=== PATIENT | female | born 1955 | race Caucasian/White ===

== ENCOUNTER 2024-08-07 11:14 | Emergency (ER) | payer MEDICARE, BC, SELFPAY ==
[2024-08-07] VITALS (10 sets, daily range): BP systolic 125–160; BP diastolic 64–132; PULSE 65–74; BMI 34.9
[2024-08-07 12:49] LABS: % Basophils 0.6 % (0-2); % Eosinophils 1.7 % (0-6); % Immature Granulocytes 0.2 % (0-0.5); % Lymphocytes 36.9 % (20.5-51.1); % Monocytes 5.4 % (1.7-9.3); % Neutrophils 55.2 % (42.2-75.2); Absolute Eosinophils 0.1 10^3/uL (0-0.7); Absolute Lymphocytes 1.7 10^3/uL (1.2-3.4); Absolute Monocytes 0.3 10^3/uL (0.1-0.6); Absolute Neutrophils 2.6 10^3/uL (1.4-6.5); Hematocrit 36.2 % (37.0-47.0); Hemoglobin 11.8 g/dL (12.0-16.0); Mean Corp Hgb Conc. 32.6 g/dL (33.0-37.0); Mean Corpuscular Hgb 27.8 pg (27.0-31.0); Mean Corpuscular Volume 85.2 fL (81.0-99.0); Mean Platelet Volume 10.8 fL (7.4-10.4); Nucleated Red Blood Cells % 0 %; Platelet Count 222 10^3/uL (130-400); Red Blood Cell Count 4.25 10^6/uL (4.20-5.40); Red Cell Dist. Width 16.1 % (11.5-14.5); White Blood Cell Count 4.6 10^3/uL (4.8-10.8)
--- NOTE | 2024-08-07 12:50 | ED.GENMED ---
History of Present Illness
General
Chief Complaint: Breathing Problem
Source: patient
Exam Limitations: none
Time Seen by Provider: 08/07/24 11:37
Nursing documentation reviewed up to this point in time: agreed with
History of Present Illness
History of Present Illness:
69 y/o F
with h/o parkinsons
low pulse ox at night, wears o2 3 L
PAF on xarelto; on metoprolol since march 2024 and has had her dose split to BID in may due to feeling orthostatic
she is here for 3 days of uris xs, waking up feeling congested, cough as well as an increase in her dizziness/lightheadedness erlinda with standing from ehr baseline
she also feels some palpitations which she thnks is PVCs but watned to be srue she wasn't back in [employer]
she is compliant with xarelto
she felt pretty sob this mornnign when she woke and coughed a bit and couldn't catch her breath
she has not had new fever, chills, diarrhea, vomiting, weakness, pleuritic pain
Past History
Past History
ED Past Medical History: Arrthythmia (PAF), Asthma, HTN, Hypercholesterolemia and Other (parkinsons)
Review of Systems
Review of Systems
Allergies reviewed?: Yes
All Other Systems: Not applicable
Phy Exam
Physical Exam
Physical Exam:
GENERAL: Alert , in no apparent distress, mild anxiety
EYE: pupils equal and reactive
NECK: Supple
ENT: o/p clr, mmm.
CARDIAC: Regular rate and rhythm .
LUNGS: occ cough; no tchypnea Clear breath sounds bilaterally, no acute respiratory distress, no wheezes/rales/rhonchi
ABDOMEN: Soft, without focal tenderness, no r/g, no cvat, normal bowel sounds
NEUROLOGICAL: Alert and oriented, no focal neuro deficits, subtle tremor
SKIN: Warm and dry, skin intact.
MUSCULOSKELETAL: No edema, well perfused. neg juvencio's sign
PSYCH: Normal and appropriate interaction.
Course
Orders/Labs/Results
Orders:
Orders
08/07/24 11:16
EKG [Electrocardiogram (*1)] Urgent
Reason for Study: Shortness of Breath
EKG- Treatment ONCE
08/07/24 12:15
Cardiac Monitoring- Treatment ONCE
08/07/24 12:17
Orthostatic VS- Treatment ONCE
CR Chest - 2 Views Urgent
Comment:
Reason For Exam: cough
08/07/24 12:35
COVID-19 Antigen Urgent
Source: Nasal Swab
Complete Blood Count/With Diff Urgent
D-Dimer Urgent
NT-proBNP Urgent
Troponin I Urgent
Influenza A+B Rapid Molecular Urgent
EZEQUIEL Source: Nasal Swab
Specimen Description:
08/07/24 13:00
Comprehensive Metabolic Panel Urgent
08/07/24 14:01
Electrocardiogram (*1) Urgent
Reason for Study: Shortness of Breath
EKG- Treatment ONCE
08/07/24 14:48
Troponin I Urgent
Abnormal Lab Results
08/07/24 08/07/24
12:35 13:00
WBC 4.6 L 10^3/uL
(4.8-10.8)
Hgb 11.8 L g/dL
(12.0-16.0)
Hct 36.2 L %
(37.0-47.0)
MCHC 32.6 L g/dL
(33.0-37.0)
RDW 16.1 H %
(11.5-14.5)
MPV 10.8 H fL
(7.4-10.4)
Glucose 107 H mg/dl
(70-99)
Total Bilirubin 1.7 H mg/dl
(0.2-1.3)
08/07/24 12:35
08/07/24 13:00
Vital Signs
Initial and Last Documented VS:
Initial Vital Signs
Temp Pulse Resp BP Pulse Ox
36.8 C 76 16 135/79 100
08/07/24 11:16 08/07/24 11:16 08/07/24 11:16 08/07/24 11:16 08/07/24 11:16
Last Documented Vital Signs
Temp Pulse Resp BP Pulse Ox
36.8 C 64 16 128/64 100
08/07/24 11:16 08/07/24 15:30 08/07/24 15:30 08/07/24 15:00 08/07/24 11:56
ED Attending Note
-
Portions of this chart may have been created with voice recognition software.� Occasional wrong word or��sound alike� substitutions may have occurred due to the inherent limitations of voice recognition software.
Discharge Plan
Departure
Patient Disposition: Home (Routine Discharge)
Date of Disposition: 08/07/24
Time of Disposition: 15:28
Patient with high blood pressure during this ER visit?: No
Condition: Fair
Covid-19: Not Applicable
Discharge Problem:
Acute upper respiratory infection
Instructions: Upper respiratory infection in adults - Discharge instructions
Prescriptions:
New
azithromycin [Zithromax Z-Miguel] 250 mg tablet
See Rx Instructions .ROUTE .COMPLEX Qty: 6 0RF
Rx Instructions:
TAKE 2 TAB PO DAY 1 THEN 1 TAB PO DAILY
No Action
levothyroxine [Synthroid] 137 mcg Tablet
137 mcg PO MOTUWETHFRSA
ondansetron HCl [Zofran] 4 mg Tablet
4 mg PO PRN PRN (Reason: nausea )
famotidine [Pepcid] 40 mg Tablet
40 mg PO .0
carbidopa-levodopa 50-200 mg Tablet Extended Release
1 tab PO .2200
diazepam 2 mg Tablet
1 mg PO .2200 PRN (Reason: sleep)
esomeprazole magnesium [Nexium] 40 mg Capsule,Delayed Release(Dr/Ec)
40 mg PO .0800 AND PRE DINNER
Patient Comments:
30 min before dinner
carbidopa-levodopa [Sinemet] 25-100 mg Tablet
1.5 tab PO .0800, 1200, 1999
carbidopa-levodopa [Sinemet] 25-100 mg Tablet
2 tab PO .1600
losartan 100 mg Tablet
100 mg PO .1999
dicyclomine 10 mg Capsule
10 mg PO PRN PRN (Reason: ibs)
metoprolol tartrate 25 mg Tablet
12.5 mg PO BID
budesonide-formoterol [Symbicort] 160-4.5 mcg/actuation Hfa Aerosol Inhaler
2 puff INHALATION BID
Xarelto 20 mg Tablet
20 mg PO QPM
Botox
0 unit SC [id number]
azelastine
2 spray intranasal BID
Referrals:
Sadaf Becerra MD [Family Provider] - Follow up in 5-7 days
Activity Restrictions/Additional Instructions:
YOU PROBABLY HAVE A VIRUS CAUSING THIS COUGH
YOUR WORK UP TODAY IS REASSURING
PLEASE TRY SOME OVER THE COUNTER REMEDIES FOR YOUR COUGH IF YOU CAN TOLERATE
IF YOU STILL HAVE A COUGH IN A FEW DAYS YOU CAN START THE ZITHROMAX ANTIBIOTIC FOR BORNCHITIS
RETURN FOR: SEVERE SHORTNESS OF BREATH, WORSE CHEST PAIN, VOMITING, FEVER, WEAKNESS ETC
Interventions
Interventions:
*Risk Screen - Suicide Last Done: 08/07/24 11:16
*General Assessment Last Done: 08/07/24 15:47
*Neglect/Abuse Screening Last Done: 08/07/24 11:16
ED- Fall Risk Assessment Last Done: 08/07/24 11:56
*ED COVID-19 Vaccine History Last Done: 08/07/24 11:56
*Nursing Disposition Last Done: 08/07/24 15:47
ED- Cardiac Assessment Last Done: 08/07/24 11:55
ED- Pulmonary Assessment Last Done: 08/07/24 11:56
Discharge Date and Time
Discharge Date/Time: 08/07/24 15:48
Print Language: PORTUGUESE
[2024-08-07 13:01] LABS: COVID-19 Antigen Negative (Negative)
[2024-08-07 13:11] LABS: NT-proBNP 270 pg/ml; Troponin I < 0.012 ng/ml
[2024-08-07 13:14] LABS: D-Dimer < 0.27 ug/mlFEU (0.00-0.50)
[2024-08-07 13:18] LABS: ALT (SGPT) < 10 U/L (0-35); AST (SGOT) 15 U/L (14-36); Albumin 4.2 g/dl (3.5-5.0); Alkaline Phosphatase 45 U/L (38-126); Blood Urea Nitrogen 13 mg/dl (7-17); Calcium 9.5 mg/dl (8.4-10.2); Carbon Dioxide 22 mmol/L (22-30); Chloride 106 mmol/L (98-107); Estimated Creatinine Clearance 81 ml/min; Glucose 107 mg/dl (70-99); Potassium 4.4 mmol/L (3.5-5.1); Sodium 139 mmol/L (135-145); Total Bilirubin 1.7 mg/dl (0.2-1.3); Total Protein 6.5 g/dl (6.3-8.2); eGFR > 60.00
[2024-08-07 15:24] LABS: Troponin I < 0.012 ng/ml
== END 2024-08-07 15:48 | disposition home or self-care (01) ==
LOC: EMR 11:14
PROVIDERS: Physician Assistant; EMERGENCY PHYSICIAN Emergency Medicine; FAMILY PHYSICIAN Family Medicine
DX: J06.9 Acute upper respiratory infection, unspecified (principal); G20.A1 Parkinson's disease without dyskinesia, without mention of fluctuations
CPT/HCPCS: 99285; 71046; 80053; 83880; 84484; 85025; 85379; 87502; 87811; 93005

== ENCOUNTER 2024-08-19 18:06 | Emergency (ER) | payer MEDICARE, BC, SELFPAY ==
[2024-08-19 18:09] VITALS: BP 150/78
[2024-08-19 21:13] VITALS: BP 151/89; BMI 35.1
--- NOTE | 2024-08-19 21:41 | ED.GENMED ---
History of Present Illness
General
Chief Complaint: Heart Rate Problem
Source: patient and spouse (Spouse also contributes to patient's recent history, being seen last week for shortness of breath)
Exam Limitations: none
Time Seen by Provider: 08/19/24 21:30
Nursing documentation reviewed up to this point in time: agreed with
History of Present Illness
History of Present Illness:
69-year-old female presents emergency department due to palpitations, cold symptoms for the past week. 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
Past History
Past History
ED Past Medical History: Arrthythmia (PAF), Asthma, HTN, Hypercholesterolemia and Other (parkinsons)
Social History
Tobacco: Non-smoker
Alcohol: None
Drug: None
Review of Systems
Review of Systems
Allergies reviewed?: Yes
All Other Systems: Not applicable
Constitutional: Reports no symptoms
EENT: Reports runny nose
Respiratory: Reports cough
Cardiac: Reports palpitations
ABD/GI: Reports no symptoms
: Reports no symptoms
Musculoskeletal: Reports no symptoms
Skin: Reports no symptoms
Neurological: Reports no symptoms
Endocrine: Reports no symptoms
Hematologic/Lymphatic: Reports no symptoms
Psychiatric: Reports no symptoms
Phy Exam
Physical Exam
Physical Exam:
Physical Exam
General: no apparent distress, not acutely ill
Neck: supple. no meningeal signs. normal posterior pharynx
Heart: s1/s2 regular rate and rhythm, no murmur. equal radial
pulses.
HEENT: Pupils equal round reactive to light, EOMI
Lungs: no acute respiratory distress. clear bilaterally, cough
Abdomen: normal bowel sounds. not tender. no CVAT
Neuro: alert and oriented. no focal neurological deficits cranial nerves II through XII intact
Skin: no rash
Psychiatric: well kept. interactive and cooperative
Extremities: no edema. no calf tenderness. negative homans. good distal pulses
Course
Orders/Labs/Results
Orders:
Orders
08/19/24 18:07
EKG [Electrocardiogram (*1)] Urgent
Reason for Study: Tachycardia
08/19/24 18:08
EKG- Treatment ONCE
08/19/24 21:52
CR Chest - 2 Views Urgent
Comment:
Reason For Exam: cough
Vital Signs
Initial and Last Documented VS:
Initial Vital Signs
Temp Pulse Resp BP Pulse Ox
98.1 F 87 18 150/78 98
08/19/24 18:09 08/19/24 18:09 08/19/24 18:09 08/19/24 18:09 08/19/24 18:09
Last Documented Vital Signs
Temp Pulse Resp BP Pulse Ox
98.1 F 87 18 151/89 99
08/19/24 18:09 08/19/24 18:09 08/19/24 18:09 08/19/24 21:13 08/19/24 21:15
MDM/Problems Addressed
Differential Diagnosis Includes:
Pneumonia, rapid atrial fibrillation
MDM/Problems Addressed:
69-year-old female with palpitations. No signs of dysrhythmia. No signs of pneumonia. Patient stable for discharge.
Chronic conditions affecting care: Arrhythmia, Asthma and Neurological disorder (Parkinson's)
Acute Exacerbation and/or Progression of Chronic Illness: Asthma
*Radiology
Radiology exam reviewed: radiology read reviewed (Chest x-ray no acute findings)
*Pulse Oximetry
Patient hypoxic: no
*EKG
Interpreted by ED Provider?: Yes
EKG Intrepretation Date: 08/19/24
EKG Intrepretation Time: 06:14
Interpretation: normal
Comparison EKG: no comparison EKG present
Heart Rate: 82
Rate: normal
Rhythm: sinus
[place]: normal axis
Interval: normal interval
QRS Pattern: normal QRS
Ischemia: no ischemia
*Clutch Inspector Interpretation
Rate: normal
Interpretation: normal
Heart Rate: 84
Rhythm: sinus
*Critical Care Note
Total Time (30-74mins, 75-104mins- exclusive of procedures): Not Applicable
Data Reviewed
Review of Other/Old Records Reveals: Labs (Recent lab work shows normal electrolytes, 08/07/2024)
Source: records
Further Testing Considered But Not Given:
Lab work not indicated
Patient Management
Social determinants of health affecting care: Living situation and Strong social support
Escalation/DeEscalation of care consider admission/obs:
Admission considered, but not indicated
ED Attending Note
-
Portions of this chart may have been created with voice recognition software.� Occasional wrong word or��sound alike� substitutions may have occurred due to the inherent limitations of voice recognition software.
Discharge Plan
Departure
Patient Disposition: Home (Routine Discharge)
Date of Disposition: 08/19/24
Time of Disposition: 23:24
Patient with high blood pressure during this ER visit?: Yes
Condition: Good
Discharge Problem:
Palpitations
Instructions: Palpitations (DC), BLOOD PRESSURE
Prescriptions:
No Action
levothyroxine [Synthroid] 137 mcg Tablet
137 mcg PO MOTUWETHFRSA
ondansetron HCl [Zofran] 4 mg Tablet
4 mg PO PRN PRN (Reason: nausea )
famotidine [Pepcid] 40 mg Tablet
40 mg PO .0
carbidopa-levodopa 50-200 mg Tablet Extended Release
1 tab PO .2199
diazepam 2 mg Tablet
1 mg PO .2200 PRN (Reason: sleep)
esomeprazole magnesium [Nexium] 40 mg Capsule,Delayed Release(Dr/Ec)
40 mg PO .0800 AND PRE DINNER
Patient Comments:
30 min before dinner
carbidopa-levodopa [Sinemet] 25-100 mg Tablet
1.5 tab PO .0800, 1200, 2000
carbidopa-levodopa [Sinemet] 25-100 mg Tablet
2 tab PO .1600
losartan 100 mg Tablet
100 mg PO .2000
dicyclomine 10 mg Capsule
10 mg PO PRN PRN (Reason: ibs)
metoprolol tartrate 25 mg Tablet
12.5 mg PO BID
budesonide-formoterol [Symbicort] 160-4.5 mcg/actuation Hfa Aerosol Inhaler
2 puff INHALATION BID
Xarelto 20 mg Tablet
20 mg PO QPM
Botox
0 unit SC [id number]
azelastine
2 spray intranasal BID
azithromycin [Zithromax Z-Miguel] 250 mg tablet
See Rx Instructions .ROUTE .COMPLEX Qty: 6 0RF
Rx Instructions:
TAKE 2 TAB PO DAY 1 THEN 1 TAB PO DAILY
Referrals:
Sadaf Becerra MD [Family Provider] - Call in 1-3 days for appt
Interventions
Interventions:
*Risk Screen - Suicide Last Done: 08/19/24 18:09
*General Assessment Last Done: 08/19/24 18:09
*Neglect/Abuse Screening Last Done: 08/19/24 21:14
ED- Fall Risk Assessment Last Done: 08/19/24 18:09
*ED COVID-19 Vaccine History Last Done: 08/19/24 18:09
ED- Cardiac Assessment Last Done: 08/19/24 21:14
ED- Pulmonary Assessment Last Done: 08/19/24 21:14
Discharge Date and Time
Print Language: MOHAWK
[2024-08-19 22:00] VITALS: BP 139/77
[2024-08-19 23:00] VITALS: BP 145/83
== END 2024-08-19 23:36 | disposition home or self-care (01) ==
LOC: EMR 18:06
PROVIDERS: EMERGENCY PHYSICIAN Emergency Medicine; FAMILY PHYSICIAN Family Medicine
DX: R00.2 Palpitations (principal); J45.909 Unspecified asthma, uncomplicated; I10 Essential (primary) hypertension; E78.00 Pure hypercholesterolemia, unspecified; I48.0 Paroxysmal atrial fibrillation; G20.A1 Parkinson's disease without dyskinesia, without mention of fluctuations
CPT/HCPCS: 99284; 71046; 93005

== ENCOUNTER → 2024-09-29 09:49 | Outpatient (REF) | payer MEDICARE, BC, SELFPAY | LOC: WDC 09:49 | PROVIDERS: ATTENDING PHYSICIAN Family Medicine | DX: R92.8 Other abnormal and inconclusive findings on diagnostic imaging of breast (principal); N63.32 Unspecified lump in axillary tail of the left breast | CPT/HCPCS: 76642; 77062; 77066 ==

== ENCOUNTER 2024-12-18 10:52 | Emergency (ER) | payer MEDICARE, BC, SELFPAY ==
[2024-12-18 10:59] VITALS: BP 149/89
--- NOTE | 2024-12-18 11:42 | ED.GENMED ---
History of Present Illness
General
Chief Complaint: Dizziness
Time Seen by Provider: 12/18/24 11:12
History of Present Illness
History of Present Illness:
Patient is a 69-year-old woman with history of A-fib, hypertension, Parkinson's, migraines presenting to the emergency department with dizziness. Patient states she has been being treated for sinusitis. She is currently on her second round of
antibiotics and is finishing up in a few days. She states that yesterday she had her migraine which was usual for her. She did have an episode of vertigo when she looks on the left. It resolved. She went to sleep did not have any recurrent
symptoms. Woke up this morning with 3 more episodes of vertigo. They were all positional and lasted for a few moments and then resolved. No nausea no vomiting. She does note that she has bilateral ear fullness. No hearing loss. When she went
to the ENT doctor for the recurrent sinusitis they did advise her that her allergies were flaring up and told her to start taking a nasal spray. However patient has not been taking anything for her allergies. No numbness tingling. No weakness.
No difficulty with ambulation.
Past History
Past History
ED Past Medical History: Arrthythmia (PAF), Asthma, HTN, Hypercholesterolemia and Other (parkinsons)
Social History
Tobacco: Non-smoker
Alcohol: None
Drug: None
Phy Exam
Physical Exam
Physical Exam:
GENERAL: in no acute distress
HEENT: normocephalic, extraocular movements intact, moist oral mucosa, bilateral middle ear effusions, boggy nasal turbinates bilaterally
NECK: normal inspection
RESPIRATORY: no respiratory distress, clear to auscultation bilaterally
CARDIOVASCULAR: regular rate and rhythm
ABDOMEN/: soft, non-distended, non-tender to palpation, no rebound or guarding
EXTREMITIES: non-tender, no edema/swelling
NEUROLOGIC: alert and oriented x 3, cranial nerves II-XII intact, right upper extremity strength 5/5, left upper extremity strength 5/5, right lower extremity strength 5/5, left lower extremity strength 5/5, normal sensation to light touch, normal
[id number] and [id number], gait not tested formally, reproducible vertigo when patient looks to the left
SKIN: warm
Sepsis
Sepsis Screening
Sepsis Assessment: Sepsis Ruled Out
Sepsis Screen
Sepsis Screen: Sepsis Ruled Out
Date: 12/18/24
Time: 14:27
Course
Orders/Labs/Results
Orders:
Orders
12/18/24 10:57
Electrocardiogram (*1) Urgent
Reason for Study: Vertigo / Dizzy
EKG- Treatment ONCE
12/18/24 11:41
Pt Eval And Treat Urgent
Treatment: vestibular
Activity Level: Ambulate
12/18/24 11:42
CT Head W/o Iv Contrast Urgent
Comment:
Reason For Exam: dizziness
Vital Signs
Initial and Last Documented VS:
Initial Vital Signs
Temp Pulse Resp BP Pulse Ox
98.5 F 80 18 149/89 99
12/18/24 10:59 12/18/24 10:59 12/18/24 10:59 12/18/24 10:59 12/18/24 10:59
Last Documented Vital Signs
Temp Pulse Resp BP Pulse Ox
98.5 F 67 15 152/86 99
12/18/24 10:59 12/18/24 14:21 12/18/24 14:21 12/18/24 14:21 12/18/24 14:21
MDM/Problems Addressed
Differential Diagnosis Includes:
Patient is a 69-year-old woman presenting to the emergency department with dizziness. Vitals unremarkable and exam does show reproducible vertigo with looking to the left. Likely peripheral cause of vertigo such as BPPV or vestibular neuritis
given the patient has an ongoing sinus infection. Could also be secondary to allergies given the turbinates and the ear congestion and ear fullness patient advised to start using the nasal spray as well as oral antihistamine.. History and exam not
consistent with central vertigo such as posterior stroke. Considered deeper abscess such as intracranial abscess though unlikely as patient is afebrile and is overall well-appearing with no neurodeficits. After shared decision making we will
obtain CT scan of the head. Will have physical therapy evaluate for vestibular therapy. EKG per my interpretation normal sinus rhythm.
*Critical Care Note
Total Time (30-74mins, 75-104mins- exclusive of procedures): Not Applicable
Update Note
Update Note:
CT scan per my interpretation with no obvious abnormality. Patient states that she has been here she has had no further episodes. Physical therapy evaluated patient. Will discharge with Antivert as needed. Patient advised to start using oral
histamine and allergy spray in addition to continuing her antibiotics. Strict return precautions given. Will discharge at this time.
ED Attending Note
-
Portions of this chart may have been created with voice recognition software.� Occasional wrong word or��sound alike� substitutions may have occurred due to the inherent limitations of voice recognition software.
Discharge Plan
Departure
Patient Disposition: Home (Routine Discharge)
Date of Disposition: 12/18/24
Time of Disposition: 14:23
Patient with high blood pressure during this ER visit?: Yes
Discharge Problem:
Vertigo
Instructions: Vertigo (a Type of Dizziness) (DC)
Prescriptions:
New
meclizine 12.5 mg tablet
12.5 mg PO TID PRN (Reason: dizziness) Qty: 30 0RF
No Action
levothyroxine [Synthroid] 137 mcg Tablet
137 mcg PO MOTUWETHFRSA
ondansetron HCl [Zofran] 4 mg Tablet
4 mg PO PRN PRN (Reason: nausea )
famotidine [Pepcid] 40 mg Tablet
40 mg PO .2199
carbidopa-levodopa 50-200 mg Tablet Extended Release
1 tab PO .2199
diazepam 2 mg Tablet
1 mg PO .2200 PRN (Reason: sleep)
esomeprazole magnesium [Nexium] 40 mg Capsule,Delayed Release(Dr/Ec)
40 mg PO .0800 AND PRE DINNER
Patient Comments:
30 min before dinner
carbidopa-levodopa [Sinemet] 25-100 mg Tablet
1.5 tab PO .0800, 1200, 2000
carbidopa-levodopa [Sinemet] 25-100 mg Tablet
2 tab PO .1600
losartan 100 mg Tablet
100 mg PO .2000
dicyclomine 10 mg Capsule
10 mg PO PRN PRN (Reason: ibs)
metoprolol tartrate 25 mg Tablet
12.5 mg PO BID
budesonide-formoterol [Symbicort] 160-4.5 mcg/actuation Hfa Aerosol Inhaler
2 puff INHALATION BID
Xarelto 20 mg Tablet
20 mg PO QPM
Botox
0 unit SC [id number]
azelastine
2 spray intranasal BID
azithromycin [Zithromax Z-Miguel] 250 mg tablet
See Rx Instructions .ROUTE .COMPLEX Qty: 6 0RF
Rx Instructions:
TAKE 2 TAB PO DAY 1 THEN 1 TAB PO DAILY
Referrals:
Kaitlin Block MD [Family Provider] -
Activity Restrictions/Additional Instructions:
You were seen in the Emergency Department today for dizziness. While you were here we performed a CT scan, which was reassuring. Please start using your oral antihistamine as well as a nasal spray to help with some of your symptoms. Please
continue your antibiotics. I did prescribe you meclizine which you can use when you are having an acute attack
We would like for you to follow up with your primary care physician for further evaluation. If you experience fever, worsening of your symptoms, or develop any other new or concerning symptoms, please return to the Emergency Department immediately.
Please see the attached sheet for additional information.
Interventions
Interventions:
*Risk Screen - Suicide Last Done: 12/18/24 10:59
*General Assessment Last Done: 12/18/24 10:59
*Neglect/Abuse Screening Last Done: 12/18/24 10:59
ED- Neurological Assessment Last Done: 12/18/24 11:42
ED- Cardiac Assessment Last Done: 12/18/24 11:42
ED Swallowing Screen Last Done: 12/18/24 11:42
Discharge Date and Time
Print Language: CHINESE
[2024-12-18 14:21] VITALS: BP 152/86
[2024-12-18 15:40] VITALS: BP 134/87
== END 2024-12-18 14:37 | disposition home or self-care (01) ==
LOC: EMR 10:52
PROVIDERS: EMERGENCY PHYSICIAN Student in an Organized Health Care Education/Training Program; FAMILY PHYSICIAN Internal Medicine
DX: R42 Dizziness and giddiness (principal); I48.0 Paroxysmal atrial fibrillation; E78.00 Pure hypercholesterolemia, unspecified; I10 Essential (primary) hypertension; J45.909 Unspecified asthma, uncomplicated; G20.A1 Parkinson's disease without dyskinesia, without mention of fluctuations
CPT/HCPCS: 99284; 70450; 93005

== ENCOUNTER 2025-02-06 13:05 | Emergency (ER) | payer MEDICARE, BC, SELFPAY ==
[2025-02-06 13:09] VITALS: BP 133/72
[2025-02-06 13:53] LABS: % Basophils 0.7 % (0-2); % Eosinophils 1.1 % (0-6); % Immature Granulocytes 0.2 % (0-0.5); % Lymphocytes 36.9 % (20.5-51.1); % Monocytes 6.9 % (1.7-9.3); % Neutrophils 54.2 % (42.2-75.2); Absolute Eosinophils 0.1 10^3/uL (0-0.7); Absolute Lymphocytes 1.7 10^3/uL (1.2-3.4); Absolute Monocytes 0.3 10^3/uL (0.1-0.6); Absolute Neutrophils 2.5 10^3/uL (1.4-6.5); Hematocrit 35.3 % (37.0-47.0); Hemoglobin 11.5 g/dL (12.0-16.0); Mean Corp Hgb Conc. 32.6 g/dL (33.0-37.0); Mean Corpuscular Hgb 27.1 pg (27.0-31.0); Mean Corpuscular Volume 83.3 fL (81.0-99.0); Mean Platelet Volume 10.8 fL (7.4-10.4); Nucleated Red Blood Cells % 0 %; Platelet Count 233 10^3/uL (130-400); Red Blood Cell Count 4.24 10^6/uL (4.20-5.40); Red Cell Dist. Width 15.6 % (11.5-14.5); White Blood Cell Count 4.6 10^3/uL (4.8-10.8)
[2025-02-06 14:06] LABS: ALT (SGPT) < 10 U/L (0-35); AST (SGOT) 13 U/L (14-36); Albumin 4.5 g/dl (3.5-5.0); Alkaline Phosphatase 55 U/L (38-126); Blood Urea Nitrogen 17 mg/dl (7-17); Calcium 9.3 mg/dl (8.4-10.2); Carbon Dioxide 22 mmol/L (22-30); Chloride 109 mmol/L (98-107); Glucose 100 mg/dl (70-99); Lipase 93 U/L (23-300); Potassium 4.3 mmol/L (3.5-5.1); Sodium 137 mmol/L (135-145); Total Bilirubin 1.5 mg/dl (0.2-1.3); Total Protein 6.8 g/dl (6.3-8.2); eGFR > 60.00
[2025-02-06 14:35] LABS: Urine Albumin Negative (Neg - Trace); Urine Bilirubin Negative (Negative); Urine Character Clear (Clear); Urine Color Yellow; Urine Glucose Negative (Negative); Urine Ketone Negative (Negative); Urine Leukocyte Negative (Negative); Urine Nitrite Negative (Negative); Urine Occult Blood Negative (Negative); Urine Urobilinogen Negative (Neg - 1+)
[2025-02-06 15:05] VITALS: BP 158/82
[2025-02-06 15:08] VITALS: BMI 35.2
[2025-02-06 15:30] VITALS: BP 134/82
--- NOTE | 2025-02-06 15:52 | ED.GENMED ---
History of Present Illness
General
Chief Complaint: Bowel Problem
Time Seen by Provider: 02/06/25 15:08
History of Present Illness
History of Present Illness:
69-year-old female with history of Parkinson's presents emergency department for evaluation of constipation for nearly 1 week. She still passing flatus. Reports hemorrhoidal bleeding as well due to straining. Started on Linzess 3 days ago which
has not been effective. Increasing abdominal discomfort noted. No fevers or night sweats. She also notes increased palpitations, currently wearing a hoop bender tank due to frequent PVCs that be removed tomorrow
Past History
Past History
ED Past Medical History: Arrthythmia (PAF), Asthma, HTN, Hypercholesterolemia and Other (parkinsons)
Social History
Tobacco: Non-smoker
Alcohol: None
Drug: None
Review of Systems
Review of Systems
Allergies reviewed?: Yes
All Other Systems: ROS reviewed and negative except as documented in HPI and ROS
Phy Exam
Physical Exam
Physical Exam:
GEN: Well appearing, NAD, WDWN
HEENT: Oral mucosa moist, no scleral icterus
Cardiac: Regular rate
Lung: No respiratory distress, no tachypnea
Abdomen: Soft, diffusely tender, no rigidity
MSK: No gross deformity or injuries
Skin: Good color, no pallor or jaundice, no rashes
Neuro: AO x3, moves all extremities freely
Psych: Calm, cooperative
Course
Orders/Labs/Results
Orders:
Orders
02/06/25 13:11
Electrocardiogram (*1) Urgent
Reason for Study: Palpitations
02/06/25 13:12
EKG- Treatment ONCE
02/06/25 13:38
Complete Blood Count/With Diff Urgent
Comprehensive Metabolic Panel Urgent
Lipase Urgent
02/06/25 14:23
Urinalysis Reflex To Culture Urgent
Date Specimen was Collected: 02/06/25
Time Specimen was Collected: 14:22
02/06/25 15:52
CR Obstruct Series W/pa Chest Urgent
Comment:
Reason For Exam: abd discomfort/constipation
02/06/25 16:50
Magnesium Citrate [Citroma] 300 ml PO ONCE ONE
Abnormal Lab Results
02/06/25
13:38
WBC 4.6 L 10^3/uL
(4.8-10.8)
Hgb 11.5 L g/dL
(12.0-16.0)
Hct 35.3 L %
(37.0-47.0)
MCHC 32.6 L g/dL
(33.0-37.0)
RDW 15.6 H %
(11.5-14.5)
MPV 10.8 H fL
(7.4-10.4)
Chloride 109 H mmol/L
(98-107)
Glucose 100 H mg/dl
(70-99)
Total Bilirubin 1.5 H mg/dl
(0.2-1.3)
AST 13 L U/L
(14-36)
02/06/25 13:38
02/06/25 13:38
Vital Signs
Initial and Last Documented VS:
Initial Vital Signs
Temp Pulse Resp BP Pulse Ox
98.8 F 69 16 133/72 98
02/06/25 13:09 02/06/25 13:09 02/06/25 13:09 02/06/25 13:09 02/06/25 13:09
Last Documented Vital Signs
Temp Pulse Resp BP Pulse Ox
98.8 F 84 27 147/82 98
02/06/25 13:09 02/06/25 16:17 02/06/25 16:17 02/06/25 16:17 02/06/25 16:00
MDM/Problems Addressed
MDM/Problems Addressed:
No obstructive signs, clinically she does not present as an obstruction. Patient is recommended to start incentive protocol due to constipation
*Critical Care Note
Total Time (30-74mins, 75-104mins- exclusive of procedures): Not Applicable
ED Attending Note
-
Portions of this chart may have been created with voice recognition software.� Occasional wrong word or��sound alike� substitutions may have occurred due to the inherent limitations of voice recognition software.
Discharge Plan
Departure
Patient Disposition: Home (Routine Discharge)
Date of Disposition: 02/06/25
Time of Disposition: 16:50
Patient with high blood pressure during this ER visit?: No
Discharge Problem:
Constipation
Instructions: Clear Liquid Diet, Constipation, Adult (DC)
Prescriptions:
No Action
levothyroxine [Synthroid] 137 mcg Tablet
137 mcg PO MOTUWETHFRSA
ondansetron HCl [Zofran] 4 mg Tablet
4 mg PO PRN PRN (Reason: nausea )
famotidine [Pepcid] 40 mg Tablet
40 mg PO .2200
carbidopa-levodopa 50-200 mg Tablet Extended Release
1 tab PO .2200
diazepam 2 mg Tablet
1 mg PO .2200 PRN (Reason: sleep)
esomeprazole magnesium [Nexium] 40 mg Capsule,Delayed Release(Dr/Ec)
40 mg PO .0800 AND PRE DINNER
Patient Comments:
30 min before dinner
carbidopa-levodopa [Sinemet] 25-100 mg Tablet
1.5 tab PO .0800, 1200, 2000
carbidopa-levodopa [Sinemet] 25-100 mg Tablet
2 tab PO .1600
losartan 100 mg Tablet
100 mg PO .2000
dicyclomine 10 mg Capsule
10 mg PO PRN PRN (Reason: ibs)
metoprolol tartrate 25 mg Tablet
12.5 mg PO BID
budesonide-formoterol [Symbicort] 160-4.5 mcg/actuation Hfa Aerosol Inhaler
2 puff INHALATION BID
Xarelto 20 mg Tablet
20 mg PO QPM
Botox
0 unit SC [id number]
azelastine
2 spray intranasal BID
azithromycin [Zithromax Z-Miguel] 250 mg tablet
See Rx Instructions .ROUTE .COMPLEX Qty: 6 0RF
Rx Instructions:
TAKE 2 TAB PO DAY 1 THEN 1 TAB PO DAILY
meclizine 12.5 mg tablet
12.5 mg PO TID PRN (Reason: dizziness) Qty: 30 0RF
Referrals:
UNKNOWN - PT DOES,NOT KNOW [Family Provider]
Activity Restrictions/Additional Instructions:
Try a liquid diet for the next 2 days to allow passage of stool to be easier. Try initially 4 ounces of magnesium citrate, if no bowel movements tonight use the next 4 ounces tomorrow
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
Interventions
Interventions:
*Risk Screen - Suicide Last Done: 02/06/25 13:09
*General Assessment Last Done: 02/06/25 15:09
*Neglect/Abuse Screening Last Done: 02/06/25 13:09
*ED- Fall Risk Assessment Last Done: 02/06/25 15:09
*Nursing Disposition Last Done: 02/06/25 17:12
KW-Vlgyob-Kuhkivmwrl Assessment Last Done: 02/06/25 15:09
Discharge Date and Time
Discharge Date/Time: 02/06/25 17:14
Print Language: DIVEHI
[2025-02-06 16:17] VITALS: BP 147/82
[2025-02-06] MEDS: CITROMA 300 ML PO (17:11)
== END 2025-02-06 17:14 | disposition home or self-care (01) ==
LOC: EMR 13:05
PROVIDERS: Emergency Medicine; Physician Assistant; EMERGENCY PHYSICIAN Student in an Organized Health Care Education/Training Program
DX: K59.00 Constipation, unspecified (principal); I49.3 Ventricular premature depolarization; E78.00 Pure hypercholesterolemia, unspecified; I10 Essential (primary) hypertension; I48.0 Paroxysmal atrial fibrillation; G20.A1 Parkinson's disease without dyskinesia, without mention of fluctuations; J45.909 Unspecified asthma, uncomplicated
CPT/HCPCS: 99285; 74022; 80053; 81003; 83690; 85025; 93005

== ENCOUNTER 2025-02-10 22:05 | Emergency (ER) | payer MEDICARE, BC, SELFPAY ==
[2025-02-10 22:06] VITALS: BMI 35.3
[2025-02-10 22:08] VITALS: BP 134/88
[2025-02-10 22:43] LABS: ALT (SGPT) < 10 U/L (0-35); AST (SGOT) 21 U/L (14-36); Albumin 4.4 g/dl (3.5-5.0); Alkaline Phosphatase 53 U/L (38-126); Blood Urea Nitrogen 16 mg/dl (7-17); Calcium 9.3 mg/dl (8.4-10.2); Carbon Dioxide 23 mmol/L (22-30); Chloride 107 mmol/L (98-107); Glucose 116 mg/dl (70-99); Sodium 135 mmol/L (135-145); Total Bilirubin 0.8 mg/dl (0.2-1.3); Total Protein 6.7 g/dl (6.3-8.2); eGFR > 60.00
[2025-02-10 22:55] LABS: % Basophils 0.7 % (0-2); % Eosinophils 1.5 % (0-6); % Immature Granulocytes 0.2 % (0-0.5); % Lymphocytes 46.1 % (20.5-51.1); % Monocytes 8.5 % (1.7-9.3); Absolute Eosinophils 0.1 10^3/uL (0-0.7); Absolute Lymphocytes 2.5 10^3/uL (1.2-3.4); Absolute Monocytes 0.5 10^3/uL (0.1-0.6); Absolute Neutrophils 2.3 10^3/uL (1.4-6.5); Hematocrit 32.6 % (37.0-47.0); Hemoglobin 10.9 g/dL (12.0-16.0); Mean Corp Hgb Conc. 33.4 g/dL (33.0-37.0); Mean Corpuscular Hgb 27.5 pg (27.0-31.0); Mean Corpuscular Volume 82.3 fL (81.0-99.0); Mean Platelet Volume 11.6 fL (7.4-10.4); Nucleated Red Blood Cells % 0 %; Platelet Count 248 10^3/uL (130-400); Red Blood Cell Count 3.96 10^6/uL (4.20-5.40); Red Cell Dist. Width 15.6 % (11.5-14.5); White Blood Cell Count 5.4 10^3/uL (4.8-10.8)
[2025-02-10 23:53] LABS: Potassium 3.8 mmol/L (3.5-5.1)
[2025-02-11 01:28] VITALS: BP 129/72
[2025-02-11 02:00] VITALS: BP 123/67
[2025-02-11 03:00] VITALS: BP 131/99
--- NOTE | 2025-02-11 03:08 | ED.GENMED ---
History of Present Illness
General
Chief Complaint: Abdominal Pain
Source: patient
Exam Limitations: none
Time Seen by Provider: 02/11/25 02:28
Nursing documentation reviewed up to this point in time: agreed with
History of Present Illness
History of Present Illness:
69 y/o F with h/o AF on xarelto, parkinsons, GERD, IBS, HTN
here with consitpation x 2-3 weeks
started having some harder stools, bloating, not feeling well about 2-3 weeks ago
also had some frequent PVCs; saw her chief architect, had monitor on for a few days
then also developed some firm stool and called her GI last week who 1 week ago put her on linzess which she did daily for a few days and was really having minimal BMs; pt says she came in 5 days ago here for these sytmpoms and had xray showing mod
stool in colon and unremarkable labs; sent tarah eto try mag citrate which she did for 2 days
went to her PCP and was told to continue the mag citrate but 2 days ago had lightheadedness, and her BP was low so she stopped that for a day, tried liquid diet
had a tiny amount of stool but today tried to eat some dinner and had some severe epigastric bloating and pain
she called her GI who told her to come tot he ER
pt now has less pain and a little less bloating but feels sore in her abdomen
no vomiting, fever, chills
Past History
Past History
ED Past Medical History: Arrthythmia (PAF), Asthma, HTN, Hypercholesterolemia and Other (parkinsons)
ED Past Surgical History: Appendectomy
Social History
Tobacco: Non-smoker
Alcohol: None
Drug: None
Review of Systems
Review of Systems
Allergies reviewed?: Yes
All Other Systems: Not applicable
Phy Exam
Physical Exam
Physical Exam:
GENERAL: Alert , in no apparent distress
EYE: pupils equal and reactive
NECK: Supple
ENT: o/p clr, mmm.
CARDIAC: Regular rate and rhythm .
LUNGS: Clear breath sounds bilaterally, no acute respiratory distress, no wheezes/rales/rhonchi
ABDOMEN: Soft, distended, hyperactive bowel sounds; mild diffuse tenderness lower abdomen, no r/g, no cvat, normal bowel sounds
NEUROLOGICAL: Alert and oriented, no focal neuro deficits
SKIN: Warm and dry, skin intact.
MUSCULOSKELETAL: No edema, well perfused. neg juvencio's sign
PSYCH: Normal and appropriate interaction.
Course
Orders/Labs/Results
Orders:
Orders
02/10/25 22:16
Complete Blood Count/With Diff Urgent
Comprehensive Metabolic Panel Urgent
02/11/25 03:07
CT Abd/Pel (IV only)-DH only Urgent
Comment:
Reason For Exam: abd bloating, ocnstipation; concern fro SBO
02/11/25 03:08
0.9% Sodium Chloride 1000 ml [Nss] 1,000 ml IV BOLUS
Abnormal Lab Results
02/10/25
22:16
RBC 3.96 L 10^6/uL
(4.20-5.40)
Hgb 10.9 L g/dL
(12.0-16.0)
Hct 32.6 L %
(37.0-47.0)
RDW 15.6 H %
(11.5-14.5)
MPV 11.6 H fL
(7.4-10.4)
Glucose 116 H mg/dl
(70-99)
02/10/25 22:16
02/10/25 22:16
Vital Signs
Initial and Last Documented VS:
Initial Vital Signs
Temp Pulse Resp BP Pulse Ox
36.9 C 76 16 134/88 99
02/10/25 22:08 02/10/25 22:08 02/10/25 22:08 02/10/25 22:08 02/10/25 22:08
Last Documented Vital Signs
Temp Pulse Resp BP Pulse Ox
36.9 C 69 12 113/79 100
02/10/25 22:08 02/11/25 03:15 02/11/25 03:15 02/11/25 05:00 02/11/25 05:00
MDM/Problems Addressed
Differential Diagnosis Includes:
constipatino,, bowel obstruction, colitis
MDM/Problems Addressed:
69-year-old female with history of paroxysmal A-fib, GERD, IBS, Parkinson's says that she has not been feeling like her normal self for the last 2 or 3 weeks where she feels bloated and has had decreased stooling. She spoke with her GI who started
her on Linzess. She took that for a couple of days but ended up in the emergency department with constipation. Patient was x-rayed and told she had moderate stool and told to start magnesium citrate. She has had several days of magnesium citrate
and has had bowel movements but really does not feel like she has had a significant bowel movement and she also is feeling some bloating and discomfort after eating, especially dinner this evening. Her belly feels much better now than it did
earlier, it was a lot more firm at the top she says. On exam she is mildly bloated/distended but only has minimal tenderness that is mild and nonfocal in the lower abdomen.
Her labs are reassuring. Her CT report was discussed with her, she does have a calcified gallstone which actually is a polyp on previous imaging and the patient is very aware of this. I gave her a copy of the report. She has no evidence of bowel
obstruction or constipation. I suspect the patient is having significant side effects from the magnesium citrate that she has taken for days in a row. Patient informed to stop this but to continue the Linzess for now until she speaks with GI today.
*Critical Care Note
Total Time (30-74mins, 75-104mins- exclusive of procedures): Not Applicable
ED Attending Note
-
Portions of this chart may have been created with voice recognition software.� Occasional wrong word or��sound alike� substitutions may have occurred due to the inherent limitations of voice recognition software.
Discharge Plan
Departure
Patient Disposition: Home (Routine Discharge)
Date of Disposition: 02/11/25
Time of Disposition: 05:00
Patient with high blood pressure during this ER visit?: No
Condition: Fair
Covid-19: Not Applicable
Discharge Problem:
Abdominal pain
Instructions: Abdominal Pain
Prescriptions:
No Action
levothyroxine [Synthroid] 137 mcg Tablet
137 mcg PO MOTUWETHFRSA
ondansetron HCl [Zofran] 4 mg Tablet
4 mg PO PRN PRN (Reason: nausea )
famotidine [Pepcid] 40 mg Tablet
40 mg PO .2200
carbidopa-levodopa 50-200 mg Tablet Extended Release
1 tab PO .2199
diazepam 2 mg Tablet
1 mg PO .2200 PRN (Reason: sleep)
esomeprazole magnesium [Nexium] 40 mg Capsule,Delayed Release(Dr/Ec)
40 mg PO .0800 AND PRE DINNER
Patient Comments:
30 min before dinner
carbidopa-levodopa [Sinemet] 25-100 mg Tablet
1.5 tab PO .0800, 1200, 2000
carbidopa-levodopa [Sinemet] 25-100 mg Tablet
2 tab PO .1600
losartan 100 mg Tablet
100 mg PO .2000
dicyclomine 10 mg Capsule
10 mg PO PRN PRN (Reason: ibs)
metoprolol tartrate 25 mg Tablet
12.5 mg PO BID
budesonide-formoterol [Symbicort] 160-4.5 mcg/actuation Hfa Aerosol Inhaler
2 puff INHALATION BID
Xarelto 20 mg Tablet
20 mg PO QPM
Botox
0 unit SC [id number]
azelastine
2 spray intranasal BID
azithromycin [Zithromax Z-Miguel] 250 mg tablet
See Rx Instructions .ROUTE .COMPLEX Qty: 6 0RF
Rx Instructions:
TAKE 2 TAB PO DAY 1 THEN 1 TAB PO DAILY
meclizine 12.5 mg tablet
12.5 mg PO TID PRN (Reason: dizziness) Qty: 30 0RF
Referrals:
Kaitlin Block MD [Family Provider, Internal Medicine] - Follow up in 5-7 days
Activity Restrictions/Additional Instructions:
YOUR CAT SCAN SHOWS A SINGLE CALCIFIED GALLSTONE (WHICH YOU WERE AWARE OF A POLYP)
YOU HAD NO SIGN OF CONSTIPATION
STOP THE MAGNESIUM CITRATE
YOU CAN CONTINUE THE LINZESS FOR NOW
TAKE METAMUCIL DAILY
FOLLOW UP WITH YOUR GI DOCTOR
RETURN FOR ANY CONCERNS
Interventions
Interventions:
*Risk Screen - Suicide Last Done: 02/11/25 04:00
*General Assessment Last Done: 02/11/25 04:00
*Neglect/Abuse Screening Last Done: 02/11/25 04:00
*ED- Fall Risk Assessment Last Done: 02/11/25 04:00
*ED COVID-19 Vaccine History Last Done: 02/11/25 04:00
CD-Qbsqnk-Evkbdqntqs Assessment Last Done: 02/11/25 04:00
Discharge Date and Time
Print Language: ESTONIAN
[2025-02-11] MEDS: NSS 1000 IV (03:51)
[2025-02-11 03:53] VITALS: BP 136/68
[2025-02-11 04:00] VITALS: BP 121/42
[2025-02-11 05:00] VITALS: BP 113/79
== END 2025-02-11 05:22 | disposition home or self-care (01) ==
LOC: EMR 22:05
PROVIDERS: Emergency Medicine; EMERGENCY PHYSICIAN Student in an Organized Health Care Education/Training Program; FAMILY PHYSICIAN Internal Medicine
DX: R10.9 Unspecified abdominal pain (principal); I48.91 Unspecified atrial fibrillation; G20.A1 Parkinson's disease without dyskinesia, without mention of fluctuations; K21.9 Gastro-esophageal reflux disease without esophagitis; K58.9 Irritable bowel syndrome, unspecified; I10 Essential (primary) hypertension; E78.00 Pure hypercholesterolemia, unspecified; J45.909 Unspecified asthma, uncomplicated; Z79.01 Long term (current) use of anticoagulants; Z90.49 Acquired absence of other specified parts of digestive tract
CPT/HCPCS: 99284; 96360; 74177; 80053; 85025; Q9967

== ENCOUNTER 2025-03-26 12:12 | Emergency (ER) | payer MEDICARE, BC, SELFPAY ==
[2025-03-26 12:17] VITALS: BP 133/98
[2025-03-26 12:56] LABS: Hematocrit 34.1 % (37.0-47.0); Hemoglobin 11.1 g/dL (12.0-16.0); Mean Corp Hgb Conc. 32.6 g/dL (33.0-37.0); Mean Corpuscular Volume 83.2 fL (81.0-99.0); Platelet Count 254 10^3/uL (130-400); Red Cell Dist. Width 18.9 % (11.5-14.5)
[2025-03-26 13:10] LABS: ALT (SGPT) < 10 U/L (0-35); AST (SGOT) 15 U/L (14-36); Albumin 4.5 g/dl (3.5-5.0); Alkaline Phosphatase 55 U/L (38-126); Blood Urea Nitrogen 12 mg/dl (7-17); Calcium 9.8 mg/dl (8.4-10.2); Carbon Dioxide 19 mmol/L (22-30); Chloride 109 mmol/L (98-107); Glucose 101 mg/dl (70-99); Lipase 59 U/L (23-300); Potassium 4.0 mmol/L (3.5-5.1); Sodium 136 mmol/L (135-145); Total Protein 6.9 g/dl (6.3-8.2); eGFR > 60.00
[2025-03-26 13:12] LABS: Nucleated Red Blood Cells % 0 %
[2025-03-26 13:21] LABS: Troponin I < 0.012 ng/ml
[2025-03-26 14:37] LABS: Urine Character Clear (Clear)
--- NOTE | 2025-03-26 16:30 | ED.GENMED ---
History of Present Illness
General
Chief Complaint: Abdominal Pain
Source: patient
Time Seen by Provider: 03/26/25 16:14
History of Present Illness
History of Present Illness:
The patient is a 69-year-old female with a history of Parkinsons disease and a previous diagnosis of atrial fibrillation. She presents to the emergency room with concerns of abdominal distension and difficulty breathing. She reports having been
treated for severe iron deficiency anemia last month, which initially resolved her constipation. However, she has been experiencing intermittent abdominal bloating since Friday, after dinner.
When eating a bagel on , she experienced worsening symptoms that led her to the emergency department at [place], where a CT scan of her abdomen was performed and reported as normal. Despite this, she was not given her Parkinsons
medications, and dissatisfied with her care, she left the hospital against medical advice. The patient was scheduled to follow up with her customer support coordinator on April 07.
She describes her symptoms as a sensation of her abdomen 'blowing up' and significant belching. While taking a shower today, she experienced difficulty breathing, which prompted her visit to the emergency room. She uses oxygen while sleeping due to
diaphragm weakness related to Parkinsons disease. Additionally, she notes significant ankle swelling over the past week and occasional headaches.
There is concern expressed about potential heart failure, though this has not been previously diagnosed. An echocardiogram had been ordered previously by her proof press operator. The patient reports a history of frequent urinary symptoms and has had a
recent urine culture, though the results are still pending.
She attributes her symptoms to a possible bacterial overgrowth in the small bowel and associates recent bowel habits with irritable bowel syndrome primarily with diarrhea, which has recently flipped to constipation.
Past History
Past History
ED Past Medical History: Arrthythmia (PAF), Asthma, HTN, Hypercholesterolemia and Other (parkinsons)
ED Past Surgical History: Appendectomy
Social History
Tobacco: Non-smoker
Alcohol: None
Drug: None
Phy Exam
Physical Exam
Physical Exam:
General: Awake, Alert, Oriented X3. No acute distress.
Vitals: unremarkable
Head: Atraumatic
Eyes: Pupils equal, EOMI
Throat: Airway intact, no exudates
Neck: Trachea midline
Lungs: Clear and equal b/l
Heart: Regular rate, no murmurs
Abd: Soft, Nontender, No pulsatile mass
Neuro: Nonfocal
Skin: Warm, dry, no rash
Extremities: pulses equal b/l, no edema
Course
Orders/Labs/Results
Orders:
Orders
03/26/25 12:25
Electrocardiogram (*1) Urgent
Reason for Study: Abdominal Pain
03/26/25 12:26
EKG- Treatment ONCE
03/26/25 12:42
Complete Blood Count/With Diff Urgent
Comprehensive Metabolic Panel Urgent
Lipase Urgent
Troponin I Urgent
03/26/25 14:28
Urinalysis Reflex To Culture Urgent
Date Specimen was Collected: 03/26/25
Time Specimen was Collected: 12:27
03/26/25 16:29
Obstruct Series W/PA Chest [CR Obstruct Series W/pa Chest] Urgent
Comment:
Reason For Exam: abdominal bloating
Abnormal Lab Results
03/26/25 03/26/25
12:42 14:28
WBC 3.6 L 10^3/uL
(4.8-10.8)
RBC 4.10 L 10^6/uL
(4.20-5.40)
Hgb 11.1 L g/dL
(12.0-16.0)
Hct 34.1 L %
(37.0-47.0)
MCHC 32.6 L g/dL
(33.0-37.0)
RDW 18.9 H %
(11.5-14.5)
MPV 11.0 H fL
(7.4-10.4)
Chloride 109 H mmol/L
(98-107)
Carbon Dioxide 19 L mmol/L
(22-30)
Glucose 101 H mg/dl
(70-99)
Total Bilirubin 1.5 H mg/dl
(0.2-1.3)
Urine Ketones 2+ A
(Negative)
03/26/25 12:42
03/26/25 12:42
Vital Signs
Initial and Last Documented VS:
Initial Vital Signs
Temp Pulse Resp BP Pulse Ox
98.2 F 79 18 133/98 99
03/26/25 12:17 03/26/25 12:17 03/26/25 12:17 03/26/25 12:17 03/26/25 12:17
Last Documented Vital Signs
Temp Pulse Resp BP Pulse Ox
98.2 F 58 18 136/75 99
03/26/25 12:17 03/26/25 17:15 03/26/25 17:15 03/26/25 17:15 03/26/25 17:15
MDM/Problems Addressed
MDM/Problems Addressed:
Patient presents for further evaluation here at [place] after leaving [facility] from [facility]. Patient had been admitted there for evaluation of palpitations and abdominal bloating. Patient produces results from testing they are at [place]
which includes a CT of the abdomen and pelvis with IV contrast, ultrasound of the abdomen and an echocardiogram as well as labs. Imaging study showed no significant abnormalities. No for the labs were troponins which were trended and were
unremarkable. A BNP was within normal limits. Patient signed out AMA because she felt like she was not getting her Parkinson's medications or other things that she thought were port. Today she began to began having bloating prompting her to
return to the emergency room. When I evaluate the patient room she is sitting up and conversing comfortably with her .
*Pulse Oximetry
SaO2: 99
Oxygen Mode of Delivery: Room air
Patient hypoxic: no
*Critical Care Note
Total Time (30-74mins, 75-104mins- exclusive of procedures): Not Applicable
ED Attending Note
-
Portions of this chart may have been created with voice recognition software.� Occasional wrong word or��sound alike� substitutions may have occurred due to the inherent limitations of voice recognition software.
Discharge Plan
Departure
Patient Disposition: Home (Routine Discharge)
Date of Disposition: 03/26/25
Time of Disposition: 16:55
Patient with high blood pressure during this ER visit?: Yes
Condition: Good
Discharge Problem:
Abdominal bloating
Instructions: Abdominal Pain
Prescriptions:
No Action
levothyroxine [Synthroid] 137 mcg Tablet
137 mcg PO MOTUWETHFRSA
ondansetron HCl [Zofran] 4 mg Tablet
4 mg PO PRN PRN (Reason: nausea )
famotidine [Pepcid] 40 mg Tablet
40 mg PO .2200
carbidopa-levodopa 50-200 mg Tablet Extended Release
1 tab PO .0
diazepam 2 mg Tablet
1 mg PO .2200 PRN (Reason: sleep)
esomeprazole magnesium [Nexium] 40 mg Capsule,Delayed Release(Dr/Ec)
40 mg PO .0800 AND PRE DINNER
Patient Comments:
30 min before dinner
carbidopa-levodopa [Sinemet] 25-100 mg Tablet
1.5 tab PO .0800, 1200, 2000
carbidopa-levodopa [Sinemet] 25-100 mg Tablet
2 tab PO .1600
losartan 100 mg Tablet
100 mg PO .2000
dicyclomine 10 mg Capsule
10 mg PO PRN PRN (Reason: ibs)
metoprolol tartrate 25 mg Tablet
12.5 mg PO BID
budesonide-formoterol [Symbicort] 160-4.5 mcg/actuation Hfa Aerosol Inhaler
2 puff INHALATION BID
Xarelto 20 mg Tablet
20 mg PO QPM
Botox
0 unit SC [id number]
azelastine
2 spray intranasal BID
azithromycin [Zithromax Z-Miguel] 250 mg tablet
See Rx Instructions .ROUTE .COMPLEX Qty: 6 0RF
Rx Instructions:
TAKE 2 TAB PO DAY 1 THEN 1 TAB PO DAILY
meclizine 12.5 mg tablet
12.5 mg PO TID PRN (Reason: dizziness) Qty: 30 0RF
Referrals:
Kaitlin Block MD [Family Provider, Internal Medicine]
Activity Restrictions/Additional Instructions:
Follow up with your GI doctor as scheduled. You bloodwork here is not concerning. Your obstruction series shows no evidence of obstruction. The testing performed here and the testing I reviewed from your stay at [place] essentially rules out any
serious cause for your bloating sensation. There is no indication to keep you in the hospital. Follow up with your GI doctor as scheduled.
Interventions
Interventions:
*Risk Screen - Suicide Last Done: 03/26/25 12:17
*General Assessment Last Done: 03/26/25 12:17
*Nursing Disposition Last Done: 03/26/25 17:16
EO-Gqtadq-Ylqskfdzvv Assessment Last Done: 03/26/25 16:15
Discharge Date and Time
Discharge Date/Time: 03/26/25 17:16
Print Language: NIGERIEN
[2025-03-26 17:15] VITALS: BP 136/75
== END 2025-03-26 17:16 | disposition home or self-care (01) ==
LOC: EMR 12:12
PROVIDERS: Student in an Organized Health Care Education/Training Program; EMERGENCY PHYSICIAN Emergency Medicine; FAMILY PHYSICIAN Internal Medicine
DX: R14.0 Abdominal distension (gaseous) (principal); I10 Essential (primary) hypertension; G20.A1 Parkinson's disease without dyskinesia, without mention of fluctuations; I48.0 Paroxysmal atrial fibrillation
CPT/HCPCS: 99285; 74022; 80053; 81003; 83690; 84484; 85025; 93005

== ENCOUNTER 2025-06-20 19:32 | Emergency (ER) | payer MEDICARE, BC, SELFPAY ==
[2025-06-20 19:37] VITALS: BP 158/90
[2025-06-20 20:15] LABS: Hematocrit 45.4 % (37.0-47.0); Hemoglobin 14.1 g/dL (12.0-16.0); Mean Corp Hgb Conc. 31.1 g/dL (33.0-37.0); Mean Corpuscular Volume 87.3 fL (81.0-99.0); Nucleated Red Blood Cells % 0 %; Platelet Count 259 10^3/uL (130-400); Red Cell Dist. Width 20.2 % (11.5-14.5)
[2025-06-20 20:17] LABS: Urine Character Clear (Clear)
[2025-06-20 20:33] LABS: ALT (SGPT) < 10 U/L (0-35); AST (SGOT) 16 U/L (14-36); Albumin 4.6 g/dl (3.5-5.0); Alkaline Phosphatase 59 U/L (38-126); Blood Urea Nitrogen 12 mg/dl (7-17); Calcium 9.9 mg/dl (8.4-10.2); Carbon Dioxide 25 mmol/L (22-30); Chloride 105 mmol/L (98-107); Glucose 100 mg/dl (70-99); Lipase 82 U/L (23-300); Potassium 4.2 mmol/L (3.5-5.1); Sodium 136 mmol/L (135-145); Total Protein 7.2 g/dl (6.3-8.2); eGFR > 60.00
[2025-06-20 21:34] VITALS: BP 135/78
[2025-06-20 21:47] VITALS: BMI 34.1
[2025-06-20 22:00] VITALS: BP 118/80
[2025-06-20] MEDS: NSS 1000 IV (22:18)
--- NOTE | 2025-06-20 22:30 | ED.GENMED ---
History of Present Illness
General
Chief Complaint: Abdominal Symptoms
Source: patient
Exam Limitations: none
Time Seen by Provider: 06/20/25 20:59
Nursing documentation reviewed up to this point in time: agreed with
History of Present Illness
History of Present Illness:
Patient is a 70-year-old female who presents to the emergency department with abdominal pain and bloating. Patient states that she suffers from IBS, GERD and has frequent bouts of constipation. She was started on Linzess by her GI doctor recently.
She states that over the past few days, since starting Linzess, she has had abdominal bloating, anorexia, and diffuse pain. She also has had frequent belching over the past few days.
She does state that she had a successful bowel movement on both Friday and Friday. She has not had any episodes of vomiting. No exertional chest pain or shortness of breath. No back pain.
She also reports noticing malodorous urine this morning however denies any dysuria or hematuria. She does have a history of UTIs.
She apparently contacted her GI doctor today to describe symptoms and was referred to the emergency department for CT scan.
Past History
Past History
ED Past Medical History: Arrthythmia (PAF), Asthma, HTN, Hypercholesterolemia and Other (parkinsons)
ED Past Surgical History: Appendectomy
Social History
Tobacco: Non-smoker
Alcohol: None
Drug: None
Review of Systems
Review of Systems
Allergies reviewed?: Yes
All Other Systems: ROS reviewed and negative except as documented in HPI and ROS
Phy Exam
Physical Exam
Physical Exam:
Vitals: Hypertensive on arrival, improved during ED stay. Afebrile
General: Patient is well appearing, no acute distress. Nontoxic-appearing
Skin: Warm and dry, no rashes or lesions
Head: Normocephalic, atraumatic
Eyes: Sclera nonicteric. EOMs intact. No nystagmus.
Throat: Protecting airway
Neck: Normal ROM, no cervical spine tenderness, no meningismus
Cardiac: Regular rate and rhythm, no murmurs.
Pulm: Normal respiratory effort, no wheezes, rales, rhonchi heard on exam
.
Abdomen: Abdomen soft. Somewhat mild diffuse tenderness. No rebound tenderness or guarding. No CVA tenderness.
Extremities: No evidence of cyanosis or edema. 2+ palpable DP pulses bilaterally
Neuro: AAOx3. Grossly intact.
Psychiatric: Normal affect.
Course
Orders/Labs/Results
Orders:
Orders
06/20/25 19:53
Complete Blood Count/With Diff Urgent
Comprehensive Metabolic Panel Urgent
Lipase Urgent
Urinalysis Reflex To Culture Urgent
Date Specimen was Collected: 06/20/25
Time Specimen was Collected: 19:45
Urine Culture Urgent
EZEQUIEL Source: U
Specimen Description:
Date Specimen was Collected: 06/20/25
Time Specimen was Collected: 19:45
Comment: ADD ON
06/20/25 21:43
0.9% Sodium Chloride 1000 ml [Nss] 1,000 ml IV BOLUS
06/20/25 21:44
Add On - Microbiology Urgent
Tests Added?: urine culture
CT Abd/pelvis W Iv Cont Urgent
Comment:
Reason For Exam: abdominal pain, bloating
06/20/25 22:53
Acetaminophen [Tylenol] 650 mg PO NOW STA
06/20/25 23:15
Electrocardiogram (*1) Urgent
Reason for Study: Chest Pain
EKG- Treatment ONCE
06/20/25 23:27
Troponin I Urgent
06/20/25 23:28
Mag Hydrox/Al Hydrox/Simeth [Maalox] 30 ml Phenobarb/Hyoscy/Atropine/Scop [] 10 ml Viscous Lidocaine 2% [Xylocaine Viscous Cup] 10 ml PO NOW
06/20/25 23:41
Mag Hydrox/Al Hydrox/Simeth [Maalox] 30 ml .ROUTE .STK-MED ONE
Phenobarb/Hyoscy/Atropine/Scop [] 10 ml .ROUTE .STK-MED ONE
Viscous Lidocaine 2% [Xylocaine Viscous Cup] 15 ml .ROUTE .STK-MED ONE
Abnormal Lab Results
06/20/25
19:53
WBC 4.6 L 10^3/uL
(4.8-10.8)
MCHC 31.1 L g/dL
(33.0-37.0)
RDW 20.2 H %
(11.5-14.5)
MPV 10.5 H fL
(7.4-10.4)
Neutrophils % 40.6 L %
(42.2-75.2)
Glucose 100 H mg/dl
(70-99)
Total Bilirubin 1.8 H mg/dl
(0.2-1.3)
06/20/25 19:53
06/20/25 19:53
Vital Signs
Initial and Last Documented VS:
Initial Vital Signs
Temp Pulse Resp BP Pulse Ox
97.7 F 70 16 158/90 100
06/20/25 19:37 06/20/25 19:37 06/20/25 19:37 06/20/25 19:37 06/20/25 19:37
Last Documented Vital Signs
Temp Pulse Resp BP Pulse Ox
97.7 F 56 17 148/92 99
06/20/25 19:37 06/21/25 00:49 06/21/25 00:49 06/21/25 00:49 06/21/25 00:49
MDM/Problems Addressed
Differential Diagnosis Includes:
Not limited to: Gastritis, GERD, pancreatitis, cholecystitis, diverticulitis, less likely cardiac etiology
MDM/Problems Addressed:
70-year-old female presents with several days of abdominal discomfort, bloating, and belching. She has a history of similar symptoms and recently initiated Linzess, prescribed by her GI specialist. She denies severe pain, vomiting, or other alarming
features.
Vital signs are stable throughout the ED visit. On physical exam, the patient is well-appearing, non-toxic, with mild diffuse abdominal tenderness but no peritoneal signs.
Laboratory workup including CBC, chemistry panel, and lipase are within normal limits. Urinalysis is negative for infection or hematuria. CT abdomen/pelvis reveals no acute abnormalities�no evidence of obstruction, perforation, or other emergent
pathology.
Given the location and nature of her discomfort, a cardiac etiology was briefly considered. EKG shows normal sinus rhythm without ischemic changes, and troponin is negative.
The patient�s symptoms improved following administration of a GI cocktail in the ED. No signs of acute infectious, obstructive, or cardiac process identified. Symptoms may be due to gastritis, GERD, or a medication side effect (Linzess).
Patient is stable for discharge with instructions to hold Linzess for now, continue PPI, and follow up with GI as scheduled or sooner if symptoms persist. Return precautions reviewed. Patient is comfortable with the plan and agrees with discharge.
Chronic conditions affecting care:
IBS, GERD, hypertension, atrial fibrillation on Xarelto
Acute Exacerbation and/or Progression of Chronic Illness:
N/A
*Radiology
Radiology exam reviewed: radiology read reviewed
*Pulse Oximetry
SaO2: 99
Oxygen Mode of Delivery: Room air
Patient hypoxic: no
*EKG
Interpreted by ED Provider?: Yes
EKG Intrepretation Date: 06/20/25
Comparison EKG: no changes
Heart Rate: 63
Rate: normal
Rhythm: sinus
[place]: normal axis
Interval: normal QT interval
QRS Pattern: low voltage
Ischemia: no ischemia
*Java Web Engineer Interpretation
Rate: Java Web Engineer- N/A
*Critical Care Note
Total Time (30-74mins, 75-104mins- exclusive of procedures): Not Applicable
ED Attending Note
-
Portions of this chart may have been created with voice recognition software.� Occasional wrong word or��sound alike� substitutions may have occurred due to the inherent limitations of voice recognition software.
Discharge Plan
Departure
Patient Disposition: Home (Routine Discharge)
Date of Disposition: 06/21/25
Time of Disposition: 00:23
Patient with high blood pressure during this ER visit?: Yes
Condition: Good
Discharge Problem:
Upper abdominal pain
Instructions: Abdominal Pain, BLOOD PRESSURE
Prescriptions:
New
sucralfate [Carafate] 1 gram tablet
1 g PO AC Qty: 30 0RF
Rx Instructions:
Take 1 tab PO before meals and 1 hr before bed
No Action
levothyroxine [Synthroid] 137 mcg Tablet
137 mcg PO MOTUWETHFRSA
ondansetron HCl [Zofran] 4 mg Tablet
4 mg PO PRN PRN (Reason: nausea )
famotidine [Pepcid] 40 mg Tablet
40 mg PO .2199
carbidopa-levodopa 50-200 mg Tablet Extended Release
1 tab PO .2199
diazepam 2 mg Tablet
1 mg PO .2200 PRN (Reason: sleep)
esomeprazole magnesium [Nexium] 40 mg Capsule,Delayed Release(Dr/Ec)
40 mg PO .0800 AND PRE DINNER
Patient Comments:
30 min before dinner
carbidopa-levodopa [Sinemet] 25-100 mg Tablet
1.5 tab PO .0800, 1200, 2000
carbidopa-levodopa [Sinemet] 25-100 mg Tablet
2 tab PO .1600
losartan 100 mg Tablet
100 mg PO .2000
dicyclomine 10 mg Capsule
10 mg PO PRN PRN (Reason: ibs)
metoprolol tartrate 25 mg Tablet
12.5 mg PO BID
budesonide-formoterol [Symbicort] 160-4.5 mcg/actuation Hfa Aerosol Inhaler
2 puff INHALATION BID
Xarelto 20 mg Tablet
20 mg PO QPM
Botox
0 unit SC [id number]
azelastine
2 spray intranasal BID
azithromycin [Zithromax Z-Miguel] 250 mg tablet
See Rx Instructions .ROUTE .COMPLEX Qty: 6 0RF
Rx Instructions:
TAKE 2 TAB PO DAY 1 THEN 1 TAB PO DAILY
meclizine 12.5 mg tablet
12.5 mg PO TID PRN (Reason: dizziness) Qty: 30 0RF
Referrals:
Kaitlin Block MD [Non-Admitting Privileges, Internal Medicine] - Follow up in 5-7 days
Activity Restrictions/Additional Instructions:
RETURN TO THE EMERGENCY DEPARTMENT ANY FEVERS, PERSISTENT/WORSENING ABDOMINAL PAIN, INTRACTABLE NAUSEA/VOMITING, INABILITY TO TOLERATE ORAL INTAKE, CHEST PAIN OR SHORTNESS OF BREATH, WORSENING IN CURRENT SYMPTOMS, OR ANY OTHER CONCERNS
- As discussed�your lab work and CT scan showed no acute abnormalities. Your urinalysis did not appear infected however I did have this sent for a culture.
- I would discontinue the Linzess until cleared by your GI doctor.
- Continue to take your famotidine and Nexium as prescribed. I would follow a low acid diet. I have sent a prescription for Carafate to your pharmacy. Stay well-hydrated.
- Follow-up with your primary care physician and GI physician for further evaluation/management and to ensure that your symptoms are improving
Monitor your symptoms closely and return to the emergency department with any acute worsening/new symptoms or any other concerns
Interventions
Interventions:
*Risk Screen - Suicide Last Done: 06/20/25 21:47
*General Assessment Last Done: 06/20/25 21:47
*Neglect/Abuse Screening Last Done: 06/20/25 21:47
*ED- Fall Risk Assessment Last Done: 06/20/25 21:47
*ED COVID-19 Vaccine History Last Done: 06/20/25 21:47
*ED Influenza Vaccine History Last Done: 06/20/25 21:47
*Nursing Disposition Last Done: 06/21/25 00:54
[facility]-Pjbypfcrqy Assessment Last Done: 06/20/25 21:47
Discharge Date and Time
Discharge Date/Time: 06/21/25 00:54
Print Language: IRISH
[2025-06-20] MEDS: TYLENOL 650 MG PO (23:18)
[2025-06-20] MEDS: MAALOX 50 PO (23:42)
[2025-06-21 00:09] LABS: Troponin I < 0.012 ng/ml
[2025-06-21 00:49] VITALS: BP 148/92
== END 2025-06-21 00:54 | disposition home or self-care (01) ==
LOC: EMR 19:32
PROVIDERS: Emergency Medicine; Physician Assistant; EMERGENCY PHYSICIAN Emergency Medicine; FAMILY PHYSICIAN Internal Medicine; REFERRING PHYSICIAN Internal Medicine Cardiovascular Disease
DX: R10.10 Upper abdominal pain, unspecified (principal); I48.0 Paroxysmal atrial fibrillation; I10 Essential (primary) hypertension; E78.00 Pure hypercholesterolemia, unspecified; G20.A1 Parkinson's disease without dyskinesia, without mention of fluctuations; J45.909 Unspecified asthma, uncomplicated; K21.9 Gastro-esophageal reflux disease without esophagitis; K58.9 Irritable bowel syndrome, unspecified; Z79.01 Long term (current) use of anticoagulants; Z87.440 Personal history of urinary (tract) infections
CPT/HCPCS: 99284; 96360; 74177; 80053; 81003; 83690; 84484; 85025; 87086; 93005; Q9967